=== PATIENT | female | born 1970 | race Caucasian/White ===

== ENCOUNTER → 2020-03-08 | Outpatient (CLI) | payer OTHER ==
[~2020-03-08] MED LIST: ALBUTEROL NEBULIZER INH; AMBIEN5 MG PO; COMPAZINE10 MG PO; DEXAMETHASONE4 MG PO; FOLIC ACID1 MG PO; HYDROCODON-ACE1 EAC4 PO; MULTIVITAMINS1 EAC1 PO; NEURONTIN600 MG PO; NORCO 5-325 TA1 EACH PO; ONDANSETRON HCL8 MG PO; PROTONIX40 MG PO; QVAR REDIHALE10.6 G1 INH; VENTOLIN HFA 66.7 GM INH; XANAX 0.25 MG0.25 MG PO
== END ==
LOC: CT 16:00
DX: R07.9 Chest pain, unspecified (principal); R06.02 Shortness of breath; C38.3 Malignant neoplasm of mediastinum, part unspecified; R59.0 Localized enlarged lymph nodes; R91.8 Other nonspecific abnormal finding of lung field
CPT/HCPCS: Q9967

== ENCOUNTER → 2020-04-05 | Day surgery (SDC) | payer OTHER | END | disposition home or self-care (01) | LOC: OR 06:48 | DX: D17.22 Benign lipomatous neoplasm of skin and subcutaneous tissue of left arm (principal); C34.90 Malignant neoplasm of unspecified part of unspecified bronchus or lung; F31.9 Bipolar disorder, unspecified; F41.8 Other specified anxiety disorders; F17.210 Nicotine dependence, cigarettes, uncomplicated; F10.20 Alcohol dependence, uncomplicated; Z79.899 Other long term (current) drug therapy; Z82.5 Family history of asthma and other chronic lower respiratory diseases; Z82.49 Family history of ischemic heart disease and other diseases of the circulatory system; Z20.822 Contact with and (suspected) exposure to COVID-19; Z51.11 Encounter for antineoplastic chemotherapy; Z51.0 Encounter for antineoplastic radiation therapy | CPT/HCPCS: 84703; J0690; J1100; J2250; J2405; J2704; J3010; J7030; J7120 ==

== ENCOUNTER → 2020-05-22 | Outpatient (CLI) | payer OTHER ==
[~2020-05-22] VITALS: Ht 162.6 cm; Wt 56.7 kg
== END ==
LOC: OPSV 12:31
DX: C78.00 Secondary malignant neoplasm of unspecified lung (principal)
CPT/HCPCS: 96372